=== PATIENT | female | born 1960 | race Two or more races ===

== ENCOUNTER 2024-10-30 16:34 | Emergency (ER) | payer MEDICAID, OTHER ==
[~2024-10-30] VITALS: Ht 160 cm; Wt 59.0 kg
[2024-10-30 17:03] VITALS: BP 123/79; TEMP 98.1
[2024-10-30 17:51] VITALS: O2SAT 100
== END 2024-10-30 17:52 | disposition home or self-care (01) ==
LOC: ER 16:47
DX: H57.89 Other specified disorders of eye and adnexa (principal); F41.9 Anxiety disorder, unspecified